=== PATIENT | female | born 1990 | race Caucasian/White ===

== ENCOUNTER 2022-02-22 13:37 | Emergency (ER) | payer MEDICAID ==
[~2022-02-22] VITALS: Ht 170.2 cm; Wt 127.0 kg
[2022-02-22 14:15] VITALS: BP_SYST 115
--- NOTE | 2022-02-22 14:38 | NUR ---
Patient to ER bed 8 to gown for evaluation. Side rails up. Report given to Miroslava VITALE.
--- NOTE | 2022-02-22 14:51 | NUR ---
ER at bedside examining patient.
--- NOTE | 2022-02-22 15:18 | NUR ---
Pt bib counselor from [facility] medication refill, Pt states out of Metformin for past week; will run out of Buproprio, Triamterine and Naltroxone. Pt is anemic htn and diabetic. blood sugar 170 blood pressure 104/55. Mental health counselor: [phone]
--- NOTE | 2022-02-22 15:45 | NUR ---
ER at bedside examining patient.
[2022-02-22 15:46] VITALS: BP_SYST 120
[2022-02-22] MEDS ORDERED: METF-834 PO (16:02)
--- NOTE | 2022-02-22 16:07 | NUR ---
Patient given written and verbal discharge instructions and verbalizes understanding. ER MD discussed with patient the results and treatment provided. Patient in stable condition. ID arm band removed. Rx of Metformin given. Patient educated on pain management and to follow up with PMD. Opportunity for questions provided and answered. Medication side effect fact sheet provided.
== END 2022-02-22 16:08 | disposition home or self-care (01) ==
LOC: SED 13:37
DX: E11.65 Type 2 diabetes mellitus with hyperglycemia (principal); R73.9 Hyperglycemia, unspecified; Z76.0 Encounter for issue of repeat prescription; Z79.899 Other long term (current) drug therapy
CPT/HCPCS: 99283